=== PATIENT | female | born 1970 | race Caucasian/White ===

== ENCOUNTER → 2016-11-24 | Outpatient (CLI) | payer MEDICARE ==
--- NOTE | 2016-11-24 10:10 | MM ---
Reason for exam: additional evaluation requested from prior study. Last mammogram was performed 1 year ago. History: Patient is postmenopausal and had first child at age 29. Family history of breast cancer in maternal aunt and breast cancer in paternal aunt. Physical Findings: Nurse did not find any significant physical abnormalities on exam. MG 3D Diag Mammo W/Cad KATARZYNA Bilateral CC and MLO view(s) were taken. Prior study comparison: November 17, 2015, bilateral MG screening mammo w CAD. September 09, 2014, right breast MG work up mamm w CAD RT. The breast tissue is heterogeneously dense. This may lower the sensitivity of mammography. Finding: There are typically benign round calcifications in both breasts. There is a chronic nodularity in the right breast. These results were verbally communicated with the patient and result sheet given to the patient on 11/24/16. ASSESSMENT: Benign, BI-RAD 2 RECOMMENDATION: Routine screening mammogram of both breasts in 1 year. Manage on a clinical basis with regard to pain.
== END | disposition home or self-care (01) ==
LOC: RADMAMWWP 09:26
PROVIDERS: ATTEND Family Medicine
DX: N64.4 Mastodynia (principal)
CPT/HCPCS: G0204; G0279

== ENCOUNTER 2017-04-13 16:15 | Emergency (ER) | payer MEDICARE ==
[2017-04-13 16:31] VITALS: TEMP 98.1
[2017-04-13] MEDS ORDERED: SODIUM CHLORIDE 0.9% 1,000 ML IV STA (17:16)
[2017-04-13] MEDS ORDERED: diphenhydrAMINE 50 MG/ML 1 ML VIAL IVP STA (17:16)
[2017-04-13] MEDS ORDERED: METOCLOPRAMIDE 5 MG/ML 2 ML VIAL IVP STA (17:16)
[2017-04-13] MEDS ORDERED: KETOROLAC 30 MG/ML 1 ML VIAL IVP STA (17:16)
[2017-04-13 17:46] LABS: Appearance,Urine Cloudy (Clear); Bacteria,Urine Rare /hpf; Bilirubin,Urine Negative (Negative); Glucose,Urine (UA) Negative (Negative); Ketones,Urine Negative (Negative); Leukocyte Esterase,Urine Moderate (Negative); Mucus,Urine Few /hpf; Nitrite,Urine Negative (Negative); PH, Urine 5.5 (5.0-8.0); Particle Count 6456; Protein,Urine Trace (Negative); RBC,Urine 2 /hpf (0-5); Specific Gravity,Urine 1.017 (1.001-1.035); Squamous Epithelial Cell,Urine 4 /hpf (0-4); UA Billing (MACRO vs. MICRO) MICRO; Urobilinogen,Urine <2.0 mg/dL (<2.0); WBC,Urine 3 /hpf (0-5)
--- NOTE | 2017-04-13 18:04 | ED ---
General Adult HPI - General Chief complaint: Headache Stated complaint: migraine & poss kidney stones Time Seen by Provider: 04/13/17 17:02 Source: patient, RN notes reviewed Mode of arrival: ambulatory Limitations: no limitations - History of Present Illness Initial comments: Patient 46-year-old female significant past medical history for migraines and kidney stones, who presents emergency room today with a chief complaint of migraine headache that started this morning. She states is located to upper head. She states consistent with migraine headaches. Patient does admit to photophobia. Patient does admit to kidney stones. She states she began feeling some symptoms last night. Does admit to pain locally to the left flank area. She does admit that he has been dark in color. She denies any other complaints or associated symptoms at this time. Patient denies any recent fever , chills, shortness of breath, chest pain, vomiting, numbness or tingling, dysuria or hematuria, constipation or diarrhea, or any other complaints. - Related Data Home Medications Medication Instructions Recorded Confirmed Eletriptan [Relpax] 40 mg PO DAILY PRN 03/24/15 04/13/17 Lisinopril [Lisinopril] 20 mg PO DAILY 03/24/15 04/13/17 Meclizine [Antivert] 25 mg PO TID PRN 03/24/15 04/13/17 Omeprazole 40 mg PO AC-BRKFST 03/24/15 04/13/17 oxyCODONE HCL/ACETAMINOPHEN 1 tab PO Q6HR PRN 03/24/15 04/13/17 [Oxycodon-Acetaminophen 7.5-325] Ibuprofen [Motrin] 800 mg PO TID 10/05/15 04/13/17 Butalb/Asprin/Caff 50-325-40Mg 1 - 2 cap PO Q4HR PRN 04/13/17 04/13/17 [Fiorinal 50-325-40 MG] SUMAtriptan SUCCINATE [Imitrex] 50 mg PO DAILY PRN 04/13/17 04/13/17 amLODIPine [Norvasc] 10 mg PO DAILY 04/13/17 04/13/17 Previous Rx's Medication Instructions Recorded Hydrocodone/Acetaminophen [[place] 1 each PO Q6HR PRN #20 tab 04/13/17 5-325] Ibuprofen [Motrin] 600 mg PO Q6HR PRN #40 day 04/13/17 Ondansetron Odt [Zofran ODT] 4 mg PO Q8HR PRN #20 tab 04/13/17 Tamsulosin [Flomax] 0.4 mg PO DAILY #10 cap 04/13/17 Allergies Allergy/AdvReac Type Severity Reaction Status Date / Time No Known Allergies Allergy Verified 04/13/17 16:42 Review of Systems ROS Statement: Those systems with pertinent positive or pertinent negative responses have been documented in the HPI. ROS Other: All systems not noted in ROS Statement are negative. Past Medical History Past Medical History: Hypertension Additional Past Medical History / Comment(s): migranes, kidney stones History of Any Multi-Drug Resistant Organisms: None Reported Past Surgical History: Hysterectomy, Orthopedic Surgery Additional Past Surgical History / Comment(s): meningeal brain tumor crainiotomy 2007 right groin hernia, right shoulder spur x 2 Past Psychological History: No Psychological Hx Reported Smoking Status: Current some day smoker Past Alcohol Use History: Rare Past Drug Use History: None Reported General Exam - General Exam Comments Initial Comments: General: The patient is awake and alert, in no distress, and does not appear acutely ill. Eye: Pupils are equal, round and reactive to light, extra-ocular movements are intact. No nystagmus. There is normal conjunctiva bilaterally. No signs of icterus. Ears, nose, mouth and throat: There are moist mucous membranes and no oral lesions. Neck: The neck is supple, there is no tenderness or JVD. Cardiovascular: There is a regular rate and rhythm. No murmur, rub or gallop is appreciated. Respiratory: Lungs are clear to auscultation, respirations are non-labored, breath sounds are equal. No wheezes, stridor, rales, or rhonchi. Gastrointestinal: Soft, non-distended, non-tender abdomen without masses or organomegaly noted. There is no rebound or guarding present. No CVA tenderness. Bowel sounds are unremarkable. Musculoskeletal: Normal ROM, no tenderness. Strength 5/5. Sensation intact. Pulses equal bilaterally 2+. Neurological: A&O x 3. CN II-XII intact, There are no obvious motor or sensory deficits. Coordination appears grossly intact. Speech is normal. Skin: Skin is warm and dry and no rashes or lesions are noted. Psychiatric: Cooperative, appropriate mood & affect, normal judgment. Limitations: no limitations Course Vital Signs 04/13/17 04/13/17 16:28 19:01 Temperature 98.1 F Pulse Rate 73 67 Respiratory 20 17 Rate Blood Pressure 149/77 137/67 O2 Sat by Pulse 100 97 Oximetry Medical Decision Making - Medical Decision Making Patient reexamined at this time shows no signs of distress. Patient's labs been reviewed. Patient does admit to symptoms are consistent with kidney stones that she's had in the past. She does admit that her headache is improved. Patient will be discharged home given a prescription for pain medication, nausea, and Flomax for kidney stone advised follow-up the urologist. - Lab Data Result diagrams: 04/13/17 18:20 04/13/17 18:20 Lab Results 04/13/17 04/13/17 04/13/17 Range/Units 17:28 17:28 18:20 WBC 6.2 (3.8-10.6) k/uL RBC 5.06 (3.80-5.40) m/uL Hgb 15.2 (11.4-16.0) gm/dL Hct 42.9 (34.0-46.0) % MCV 84.9 (80.0-100.0) fL MCH 30.1 (25.0-35.0) pg MCHC 35.5 (31.0-37.0) g/dL RDW 13.7 (11.5-15.5) % Plt Count 209 (150-450) k/uL Neutrophils % 53 % Lymphocytes % 37 % Monocytes % 4 % Eosinophils % 3 % Basophils % 0 % Neutrophils # 3.3 (1.3-7.7) k/uL Lymphocytes # 2.3 (1.0-4.8) k/uL Monocytes # 0.3 (0-1.0) k/uL Eosinophils # 0.2 (0-0.7) k/uL Basophils # 0.0 (0-0.2) k/uL Sodium (137-145) mmol/L Potassium (3.5-5.1) mmol/L Chloride (98-107) mmol/L Carbon Dioxide (22-30) mmol/L Anion Gap mmol/L BUN (7-17) mg/dL Creatinine (0.52-1.04) mg/dL Est GFR (MDRD) Af Amer (>60 ml/min/1.73 sqM) Est GFR (MDRD) Non-Af (>60 ml/min/1.73 sqM) Glucose (74-99) mg/dL Calcium (8.4-10.2) mg/dL Total Bilirubin (0.2-1.3) mg/dL AST (14-36) U/L ALT (9-52) U/L Alkaline Phosphatase (38-126) U/L Total Protein (6.3-8.2) g/dL Albumin (3.5-5.0) g/dL Lipase (23-300) U/L Urine Color Yellow Urine Appearance Cloudy H (Clear) Urine pH 5.5 (5.0-8.0) Ur Specific Moore 1.017 (1.001-1.035) Urine Protein Trace H (Negative) Urine Glucose (UA) Negative (Negative) Urine Ketones Negative (Negative) Urine Blood Negative (Negative) Urine Nitrite Negative (Negative) Urine Bilirubin Negative (Negative) Urine Urobilinogen <2.0 (<2.0) mg/dL Ur Leukocyte Esterase Moderate H (Negative) Urine RBC 2 (0-5) /hpf Urine WBC 3 (0-5) /hpf Ur Squamous Epith Cells 4 (0-4) /hpf Urine Bacteria Rare H (None) /hpf Urine Mucus Few H (None) /hpf Urine HCG, Qual Not Detected (Not Detectd) 04/13/17 Range/Units 18:20 WBC (3.8-10.6) k/uL RBC (3.80-5.40) m/uL Hgb (11.4-16.0) gm/dL Hct (34.0-46.0) % MCV (80.0-100.0) fL MCH (25.0-35.0) pg MCHC (31.0-37.0) g/dL RDW (11.5-15.5) % Plt Count (150-450) k/uL Neutrophils % % Lymphocytes % % Monocytes % % Eosinophils % % Basophils % % Neutrophils # (1.3-7.7) k/uL Lymphocytes # (1.0-4.8) k/uL Monocytes # (0-1.0) k/uL Eosinophils # (0-0.7) k/uL Basophils # (0-0.2) k/uL Sodium 142 (137-145) mmol/L Potassium 4.3 (3.5-5.1) mmol/L Chloride 107 (98-107) mmol/L Carbon Dioxide 21 L (22-30) mmol/L Anion Gap 14 mmol/L BUN 11 (7-17) mg/dL Creatinine 0.77 (0.52-1.04) mg/dL Est GFR (MDRD) Af Amer >60 (>60 ml/min/1.73 sqM) Est GFR (MDRD) Non-Af >60 (>60 ml/min/1.73 sqM) Glucose 77 (74-99) mg/dL Calcium 9.6 (8.4-10.2) mg/dL Total Bilirubin 0.7 (0.2-1.3) mg/dL AST 42 H (14-36) U/L ALT 51 (9-52) U/L Alkaline Phosphatase 96 (38-126) U/L Total Protein 7.3 (6.3-8.2) g/dL Albumin 4.6 (3.5-5.0) g/dL Lipase 110 (23-300) U/L Urine Color Urine Appearance (Clear) Urine pH (5.0-8.0) Ur Specific Moore (1.001-1.035) Urine Protein (Negative) Urine Glucose (UA) (Negative) Urine Ketones (Negative) Urine Blood (Negative) Urine Nitrite (Negative) Urine Bilirubin (Negative) Urine Urobilinogen (<2.0) mg/dL Ur Leukocyte Esterase (Negative) Urine RBC (0-5) /hpf Urine WBC (0-5) /hpf Ur Squamous Epith Cells (0-4) /hpf Urine Bacteria (None) /hpf Urine Mucus (None) /hpf Urine HCG, Qual (Not Detectd) Disposition Clinical Impression: Migraine, Kidney stone Disposition: HOME SELF-CARE Condition: Good Instructions: Kidney Stones (ED) Additional Instructions: Please use medication as discussed. Please follow-up with urologist/family doctor in the next 2 days of symptoms have not improved. Please return to emergency room if the symptoms increase or worsen or for any other concerns. Prescriptions: Hydrocodone/Acetaminophen [Donovan 5-325] 1 each PO Q6HR PRN #20 tab PRN Reason: Pain Ibuprofen [Motrin] 600 mg PO Q6HR PRN #40 day PRN Reason: Pain Ondansetron Odt [Zofran ODT] 4 mg PO Q8HR PRN #20 tab PRN Reason: Nausea Tamsulosin [Flomax] 0.4 mg PO DAILY #10 cap Referrals: Allan Vasquez MD [Primary Care Provider] - 1-2 days Lauri Murrieta MD [STAFF PHYSICIAN] - 1-2 days Time of Disposition: 19:10
[2017-04-13 18:33] LABS: Basophils % (A) 0 %; CH 29.7; CHCM 35.1; Eosinophils # (A) 0.2 k/uL (0-0.7); Eosinophils % (A) 3 %; HCT 42.9 % (34.0-46.0); HGB 15.2 gm/dL (11.4-16.0); Luc # (Auto) 0.16; Luc % (Auto) 3; Lymphocytes # (A) 2.3 k/uL (1.0-4.8); Lymphocytes % (A) 37 %; MCH 30.1 pg (25.0-35.0); MCHC 35.5 g/dL (31.0-37.0); MCV 84.9 fL (80.0-100.0); Mean Platelet Volume 9.4; Monocytes # (A) 0.3 k/uL (0-1.0); Monocytes % (A) 4 %; Neutrophils # (A) 3.3 k/uL (1.3-7.7); Neutrophils % (A) 53 %; RBC 5.06 m/uL (3.80-5.40); RDW 13.7 % (11.5-15.5); WBC 6.2 k/uL (3.8-10.6); WBC (Perox) 6.43
[2017-04-13 18:35] LABS: ALT 51 U/L (9-52); AST 42 U/L (14-36); Alkaline Phosphatase 96 U/L (38-126); Anion Gap 14 mmol/L; Blood Urea Nitrogen 11 mg/dL (7-17); Calcium 9.6 mg/dL (8.4-10.2); Carbon Dioxide 21 mmol/L (22-30); Chloride 107 mmol/L (98-107); Glucose 77 mg/dL (74-99); Non-African American GFR(MDRD) >60 (>60 ml/min/1.73 sqM); Potassium 4.3 mmol/L (3.5-5.1); Sodium 142 mmol/L (137-145); Total Bilirubin 0.7 mg/dL (0.2-1.3); Total Protein 7.3 g/dL (6.3-8.2)
[2017-04-13 19:53] VITALS: BP 149/73; PULSE 62; RESP 18
--- NOTE | 2017-04-13 22:00 | XR ---
EXAMINATION TYPE: XR KUB DATE OF EXAM: 04/13/2017 COMPARISON: 10/05/2015 HISTORY: Flank pain TECHNIQUE: 2 views FINDINGS: There is no sign of intestinal obstruction or pneumoperitoneum. Fecal pattern is normal. Th ere is no sign of a mass. There are no pathologic calcifications over the kidneys. IMPRESSION: Nonacute abdomen. No change.
== END 2017-04-13 19:20 | disposition home or self-care (01) ==
LOC: EC 16:15
DX: G43.909 Migraine, unspecified, not intractable, without status migrainosus (principal); N20.0 Calculus of kidney; I10 Essential (primary) hypertension; F17.200 Nicotine dependence, unspecified, uncomplicated; Z79.1 Long term (current) use of non-steroidal anti-inflammatories (NSAID); Z79.899 Other long term (current) drug therapy
CPT/HCPCS: 99284; 96374; 96375 ×2; 96361; 36415; 80053; 83690; 85025; 81001; 81025; 87086; 74000; J1200; J2765; J1885

== ENCOUNTER → 2018-03-06 | Outpatient (CLI) | payer MEDICARE ==
--- NOTE | 2018-03-07 14:13 | MM ---
Reason for exam: screening (asymptomatic). Last mammogram was performed 1 year and 3 months ago. History: Patient is postmenopausal and had first child at age 29. Family history of breast cancer in maternal aunt and breast cancer in paternal aunt. Physical Findings: A clinical breast exam by your physician is recommended on an annual basis and results should be correlated with mammographic findings. MG 3D Screening Mammo W/Cad Bilateral CC and MLO view(s) were taken. Prior study comparison: November 24, 2016, bilateral MG 3d diag mammo w/cad KATARZYNA. November 17, 2015, bilateral MG screening mammo w CAD. The breast tissue is heterogeneously dense. This may lower the sensitivity of mammography. There is no discrete abnormality. ASSESSMENT: Negative, BI-RAD 1 RECOMMENDATION: Routine screening mammogram of both breasts in 1 year.
== END | disposition home or self-care (01) ==
LOC: RADMAMWWP 10:49
PROVIDERS: ATTEND Family Medicine
DX: Z12.31 Encounter for screening mammogram for malignant neoplasm of breast (principal)
CPT/HCPCS: 77063; 77067

== ENCOUNTER 2019-10-07 09:01 | Emergency (ER) | payer MEDICARE ==
[2019-10-07 09:21] VITALS: RESP 20; TEMP 98.7
[2019-10-07] MEDS ORDERED: IPRATROPIUM-ALBUTEROL 3 ML NEB INHALATION STA (09:43)
[2019-10-07] MEDS ORDERED: methylPREDNISolone SOD SUCCI 125 MG/2 ML VIAL IM ONE (09:43)
--- NOTE | 2019-10-07 09:54 | ED ---
URI HPI - General Chief Complaint: Upper Respiratory Infection Stated Complaint: cough/congestion Time Seen by Provider: 10/07/19 09:28 Source: patient, RN notes reviewed, old records reviewed Mode of arrival: ambulatory Limitations: no limitations - History of Present Illness Initial Comments: This is a 49-year-old female presents with 3 weeks of cough congestion. Has been exposed to her son who was diagnosed with sinusitis and bronchitis. Patient has had a productive cough. She denies any bloody sputum. He reports that she quit smoking when the symptoms started approximately 3 weeks ago. - Related Data Home Medications Medication Instructions Recorded Confirmed Eletriptan [Relpax] 40 mg PO DAILY PRN 03/24/15 04/13/17 Lisinopril 20 mg PO DAILY 03/24/15 04/13/17 Meclizine [Antivert] 25 mg PO TID PRN 03/24/15 04/13/17 Omeprazole 40 mg PO AC-BRKFST 03/24/15 04/13/17 oxyCODONE HCL/ACETAMINOPHEN 1 tab PO Q6HR PRN 03/24/15 04/13/17 [Oxycodon-Acetaminophen 7.5-325] Ibuprofen [Motrin] 800 mg PO TID 10/05/15 04/13/17 Butalb/Asprin/Caff 50-325-40Mg 1 - 2 cap PO Q4HR PRN 04/13/17 04/13/17 [Fiorinal 50-325-40 MG] SUMAtriptan SUCCINATE [Imitrex] 50 mg PO DAILY PRN 04/13/17 04/13/17 amLODIPine [Norvasc] 10 mg PO DAILY 04/13/17 04/13/17 Previous Rx's Medication Instructions Recorded Hydrocodone/Acetaminophen [[place] 1 each PO Q6HR PRN #20 tab 04/13/17 5-325] Ibuprofen [Motrin] 600 mg PO Q6HR PRN #40 day 04/13/17 Ondansetron Odt [Zofran ODT] 4 mg PO Q8HR PRN #20 tab 04/13/17 Tamsulosin [Flomax] 0.4 mg PO DAILY #10 cap 04/13/17 Azithromycin 250 mg PO DAILY #6 tablet 10/07/19 Ipratropium-Albuterol Nebulize 3 ml INHALATION QID #30 neb 10/07/19 [Duoneb 0.5 mg-3 mg/3 ml Soln] predniSONE [Deltasone] 20 mg PO DIRECTED #12 tab 10/07/19 Allergies Allergy/AdvReac Type Severity Reaction Status Date / Time No Known Allergies Allergy Verified 04/13/17 16:42 Review of Systems ROS Statement: Those systems with pertinent positive or pertinent negative responses have been documented in the HPI. ROS Other: All systems not noted in ROS Statement are negative. Past Medical History Past Medical History: Hypertension Additional Past Medical History / Comment(s): migranes, kidney stones, brain tumor History of Any Multi-Drug Resistant Organisms: None Reported Past Surgical History: Hysterectomy, Orthopedic Surgery Additional Past Surgical History / Comment(s): meningeal brain tumor crainiotomy 2007 right groin hernia, right shoulder spur x 2 Past Psychological History: Anxiety Smoking Status: Current some day smoker Past Alcohol Use History: None Reported Past Drug Use History: None Reported General Exam - General Exam Comments Initial Comments: 49 yo female. Alert and oriented 3. Limitations: no limitations Head exam: Present: atraumatic, normocephalic, normal inspection Eye exam: Present: normal appearance, PERRL, EOMI. Absent: scleral icterus, conjunctival injection, periorbital swelling ENT exam: Present: normal exam, mucous membranes moist Neck exam: Present: normal inspection. Absent: tenderness, meningismus, lymphadenopathy Respiratory exam: Present: other (cough, minimal wheezing). Absent: normal lung sounds bilaterally, respiratory distress, wheezes, rales, rhonchi, stridor Cardiovascular Exam: Present: regular rate, normal rhythm, normal heart sounds. Absent: systolic murmur, diastolic murmur, rubs, gallop, clicks GI/Abdominal exam: Present: soft, normal bowel sounds. Absent: distended, tenderness, guarding, rebound, rigid Extremities exam: Present: normal inspection, full ROM, normal capillary refill. Absent: tenderness, pedal edema, joint swelling, calf tenderness Back exam: Present: normal inspection Neurological exam: Present: alert, oriented X3, CN II-XII intact Psychiatric exam: Present: normal affect, normal mood Skin exam: Present: warm, dry, intact, normal color. Absent: rash Course Vital Signs 10/07/19 09:17 Temperature 98.7 F Pulse Rate 65 Respiratory 20 Rate Blood Pressure 122/82 O2 Sat by Pulse 96 Oximetry Medical Decision Making - Medical Decision Making 49-year-old female presented today for eval for concern for cough congestion for 3 weeks. She reports that she is a former smoker. She does have some wheezing. Using albuterol treatments. Patient had no specific fevers or chills. At this time patient's chest x-ray is unremarkable. She was given IM Solu-Medrol and DuoNeb. I discussed treatment at this time for bronchitis, with steroids will put the Patient on azithromycin she's had symptoms for 3 weeks. I discussed return parameters and close PCP follow-up. Disposition Clinical Impression: Bronchitis Disposition: HOME SELF-CARE Condition: Good Instructions (If sedation given, give patient instructions): Acute Bronchitis (ED) Additional Instructions: Please use medication as discussed. Please follow up with family doctor if symptoms have not improved over the next two days. Please return to the emergency room if your symptoms increase or worsen or for any other concerns. Prescriptions: Azithromycin 250 mg PO DAILY #6 tablet predniSONE [Deltasone] 20 mg PO DIRECTED #12 tab Ipratropium-Albuterol Nebulize [Duoneb 0.5 mg-3 mg/3 ml Soln] 3 ml INHALATION QID #30 neb Is patient prescribed a controlled substance at d/c from ED?: No Referrals: Allan Vasquez MD [Primary Care Provider] - 1-2 days Time of Disposition: 10:15
--- NOTE | 2019-10-07 10:10 | XR ---
EXAMINATION TYPE: XR chest 2V DATE OF EXAM: 10/07/2019 COMPARISON: 09/22/2011 HISTORY: Cough and congestion for 3 weeks TECHNIQUE: Frontal and lateral views of the chest are obtained. FINDINGS: There is no focal air space opacity, pleural effusion, or pneumothorax seen. Stable right- sided pleural thickening dating back to 2011. The cardiac silhouette size is within normal limits. The osseous structures are intact. Very minimal degenerative change of the spine. IMPRESSION: No acute cardiopulmonary process.
[2019-10-07 10:25] VITALS: BP 144/86; PULSE 64
== END 2019-10-07 10:26 | disposition home or self-care (01) ==
LOC: EC 09:01
DX: J40 Bronchitis, not specified as acute or chronic (principal); I10 Essential (primary) hypertension; Z87.891 Personal history of nicotine dependence; Z79.1 Long term (current) use of non-steroidal anti-inflammatories (NSAID); Z79.899 Other long term (current) drug therapy; Z85.841 Personal history of malignant neoplasm of brain; Z86.69 Personal history of other diseases of the nervous system and sense organs; Z98.890 Other specified postprocedural states; Z20.89 Contact with and (suspected) exposure to other communicable diseases
CPT/HCPCS: 99284; 96372; 94640; 71046; J2930

== ENCOUNTER 2020-01-13 09:59 | Emergency (ER) | payer MEDICARE ==
[2020-01-13 10:17] VITALS: TEMP 98.4
--- NOTE | 2020-01-13 10:28 | ED ---
Neuro HPI - General Chief Complaint: Neuro Symptoms/Deficit Stated Complaint: neuro symptoms Time Seen by Provider: 01/13/20 10:00 Source: patient, EMS, RN notes reviewed Mode of arrival: EMS Limitations: no limitations - History of Present Illness Is the patient presenting with stroke symptoms?: No Initial Comments: This is a 49-year-old female with a history of a partially resected meningioma several years ago who states she's had cold-like symptoms with some left ear pressure over last several days ear pressure is been on-and-off. She denies any overt fevers chills nausea vomiting sweats cough phlegm production rhinorrhea. She states about one hour ago prior to arrival she was at work and started developing some trouble with speech and some trouble moving her left eyelid and felt like her left facial area was responding normally. No weakness or arms or legs no trauma no headache no other symptoms reported at this time. Per paramedics she possibly had some conjunctivitis type changes old she does admit she just put her contact lenses in earlier today. - Related Data Home Medications: Home Medications Medication Instructions Recorded Confirmed Lisinopril 20 mg PO DAILY 03/24/15 01/13/20 Omeprazole 40 mg PO AC-BRKFST 03/24/15 01/13/20 Butalb/Asprin/Caff 50-325-40Mg 1 - 2 cap PO Q4HR PRN 04/13/17 01/13/20 [Fiorinal 50-325-40 MG] ALPRAZolam [Xanax] 0.5 mg PO TID 01/13/20 01/13/20 Albuterol Inhaler [Ventolin Hfa 2 puff INHALATION RT-Q6H PRN 01/13/20 01/13/20 Inhaler] Cetirizine HCl [Zyrtec] 10 mg PO DAILY PRN 01/13/20 01/13/20 Naproxen Sodium 550 mg PO BID 01/13/20 01/13/20 Previous Rx's Medication Instructions Recorded predniSONE [Deltasone] 40 mg PO BID #14 tab 01/13/20 valACYclovir HCL [Valacyclovir] 1,000 mg PO TID #21 tab 01/13/20 Allergies/Adverse Reactions: Allergies Allergy/AdvReac Type Severity Reaction Status Date / Time No Known Allergies Allergy Verified 01/13/20 11:17 Review of Systems ROS Statement: Those systems with pertinent positive or pertinent negative responses have been documented in the HPI. ROS Other: All systems not noted in ROS Statement are negative. General Exam - General Exam Comments Initial Comments: This is a well-developed well-nourished awake alert oriented 1 female patient does have evidence of left facial asymmetry with forehead involvement. Limitations: no limitations General appearance: alert, anxious Head exam: Present: atraumatic, normocephalic, normal inspection Eye exam: Present: normal appearance, PERRL, EOMI. Absent: scleral icterus, conjunctival injection, periorbital swelling ENT exam: Present: mucous membranes moist, other (Patient's has some fluid behind left tympanic membrane no posterior pharyngeal erythema.) Neck exam: Present: normal inspection, full ROM, other (No stridor JVD or bruits). Absent: tenderness, meningismus, lymphadenopathy Respiratory exam: Present: normal lung sounds bilaterally. Absent: respiratory distress, wheezes, rales, rhonchi, stridor Cardiovascular Exam: Present: regular rate, normal rhythm, normal heart sounds. Absent: systolic murmur, diastolic murmur, rubs, gallop, clicks GI/Abdominal exam: Present: soft, normal bowel sounds. Absent: distended, tenderness, guarding, rebound, rigid Extremities exam: Present: normal inspection, full ROM, normal capillary refill. Absent: tenderness, pedal edema, joint swelling, calf tenderness Back exam: Present: normal inspection Neurological exam: Present: alert, oriented X3, other ((Patient asymmetry with for his sparing more consistent with Zepeda's palsy). Absent: CN II-XII intact Psychiatric exam: Present: normal affect, normal mood Skin exam: Present: warm, dry, intact, normal color. Absent: rash Stroke MDM - Lab Data Result diagrams: 01/13/20 10:35 01/13/20 10:35 Lab Results 01/13/20 01/13/20 01/13/20 Range/Units 10:35 10:35 10:35 WBC 6.7 (3.8-10.6) k/uL RBC 4.91 (3.80-5.40) m/uL Hgb 15.1 (11.4-16.0) gm/dL Hct 43.9 (34.0-46.0) % MCV 89.4 (80.0-100.0) fL MCH 30.8 (25.0-35.0) pg MCHC 34.4 (31.0-37.0) g/dL RDW 13.6 (11.5-15.5) % Plt Count 220 (150-450) k/uL Neutrophils % 60 % Lymphocytes % 29 % Monocytes % 5 % Eosinophils % 3 % Basophils % 0 % Neutrophils # 4.0 (1.3-7.7) k/uL Lymphocytes # 2.0 (1.0-4.8) k/uL Monocytes # 0.3 (0-1.0) k/uL Eosinophils # 0.2 (0-0.7) k/uL Basophils # 0.0 (0-0.2) k/uL PT 9.4 (9.0-12.0) sec INR 0.9 (<1.2) APTT 23.7 (22.0-30.0) sec Sodium 139 (137-145) mmol/L Potassium 4.1 (3.5-5.1) mmol/L Chloride 106 (98-107) mmol/L Carbon Dioxide 24 (22-30) mmol/L Anion Gap 9 mmol/L BUN 12 (7-17) mg/dL Creatinine 0.62 (0.52-1.04) mg/dL Est GFR (CKD-EPI)AfAm >90 (>60 ml/min/1.73 sqM) Est GFR (CKD-EPI)NonAf >90 (>60 ml/min/1.73 sqM) Glucose 146 H (74-99) mg/dL Calcium 9.4 (8.4-10.2) mg/dL Total Bilirubin 0.4 (0.2-1.3) mg/dL AST 26 (14-36) U/L ALT 28 (4-34) U/L Alkaline Phosphatase 87 (38-126) U/L Creatine Kinase 47 (30-135) U/L Troponin I (0.000-0.034) ng/mL Total Protein 7.2 (6.3-8.2) g/dL Albumin 4.4 (3.5-5.0) g/dL 01/13/20 Range/Units 10:35 WBC (3.8-10.6) k/uL RBC (3.80-5.40) m/uL Hgb (11.4-16.0) gm/dL Hct (34.0-46.0) % MCV (80.0-100.0) fL MCH (25.0-35.0) pg MCHC (31.0-37.0) g/dL RDW (11.5-15.5) % Plt Count (150-450) k/uL Neutrophils % % Lymphocytes % % Monocytes % % Eosinophils % % Basophils % % Neutrophils # (1.3-7.7) k/uL Lymphocytes # (1.0-4.8) k/uL Monocytes # (0-1.0) k/uL Eosinophils # (0-0.7) k/uL Basophils # (0-0.2) k/uL PT (9.0-12.0) sec INR (<1.2) APTT (22.0-30.0) sec Sodium (137-145) mmol/L Potassium (3.5-5.1) mmol/L Chloride (98-107) mmol/L Carbon Dioxide (22-30) mmol/L Anion Gap mmol/L BUN (7-17) mg/dL Creatinine (0.52-1.04) mg/dL Est GFR (CKD-EPI)AfAm (>60 ml/min/1.73 sqM) Est GFR (CKD-EPI)NonAf (>60 ml/min/1.73 sqM) Glucose (74-99) mg/dL Calcium (8.4-10.2) mg/dL Total Bilirubin (0.2-1.3) mg/dL AST (14-36) U/L ALT (4-34) U/L Alkaline Phosphatase (38-126) U/L Creatine Kinase (30-135) U/L Troponin I <0.012 (0.000-0.034) ng/mL Total Protein (6.3-8.2) g/dL Albumin (3.5-5.0) g/dL - NIH Stroke Scale 1a. Level of Consciousness: (0) alert 1b. LOC Questions: (0) answers correctly 1c. LOC Commands: (0) performs tasks correctly 2. Best Gaze: (0) normal 3. Visual: (0) no visual loss 4. Facial Palsy: (1) minor paralysis 5a. Motor Arm Left: (0) no drift 5b. Motor Arm Right: (0) no drift 6a. Motor Leg Left: (0) no drift 6b. Motor Leg Right: (0) no drift 7. Limb Ataxia: (0) absent 8. Sensory: (0) normal 9. Best Language: (0) no aphasia 10. Dysarthria: (0) normal 11. 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 He diagnosis is Zepeda's palsy she will be discharged on appropriate medication she is very familiar with this as her had the past. She will follow-up with Dr. Vasquez tomorrow. When necessary - EKG Data -: EKG Interpreted by Me EKG shows normal: sinus rhythm (Sinus rhythm rate 84. Interval 92 QRS duration 94 QT since QTC 370/437 that anterior fascicular block [place] inferior configuration nonspecific anterolateral configuration) Past Medical History Past Medical History: Hypertension Additional Past Medical History / Comment(s): migranes, kidney stones, brain tumor History of Any Multi-Drug Resistant Organisms: None Reported Past Surgical History: Hysterectomy, Orthopedic Surgery Additional Past Surgical History / Comment(s): meningeal brain tumor crainiotomy 2007 right groin hernia, right shoulder spur x 2 Past Psychological History: Anxiety Smoking Status: Current some day smoker Past Alcohol Use History: None Reported Past Drug Use History: None Reported Course Vital Signs 01/13/20 01/13/20 01/13/20 10:02 10:30 11:00 Temperature 98.4 F Pulse Rate 79 Respiratory 18 Rate Blood Pressure 150/85 150/85 153/82 O2 Sat by Pulse 94 L 95 Oximetry 01/13/20 01/13/20 11:30 12:54 Temperature Pulse Rate 71 66 Respiratory 22 18 Rate Blood Pressure 135/78 142/71 O2 Sat by Pulse 96 142 H Oximetry - Reevaluation(s) Reevaluation #1: 01/13/20 15:23 Patient did have a plain brain CT which showed the evidence of a meningioma perhaps increased in size the patient and her are aware this. Due to the presentation and prior history CT angios was ordered initial visual field due to extravasation of contrast in the left forearm. Repeat was done. CT shows no evidence of any obstruction of the arterial system. Disposition Clinical Impression: Zepeda's palsy Disposition: HOME SELF-CARE Condition: Good Instructions (If sedation given, give patient instructions): Zepeda Palsy (ED) Additional Instructions: Lacri-Lube at bedtime when necessary Prescriptions: predniSONE [Deltasone] 40 mg PO BID #14 tab valACYclovir HCL [Valacyclovir] 1,000 mg PO TID #21 tab Is patient prescribed a controlled substance at d/c from ED?: No Referrals: Allan Vasquez MD [Primary Care Provider] - 1-2 days
[2020-01-13 11:05] LABS: Basophils % (A) 0 %; Eosinophils # (A) 0.2 k/uL (0-0.7); Eosinophils % (A) 3 %; HCT 43.9 % (34.0-46.0); HGB 15.1 gm/dL (11.4-16.0); Lymphocytes % (A) 29 %; MCH 30.8 pg (25.0-35.0); MCHC 34.4 g/dL (31.0-37.0); MCV 89.4 fL (80.0-100.0); Mean Platelet Volume 10.3; Monocytes # (A) 0.3 k/uL (0-1.0); Monocytes % (A) 5 %; Neutrophils % (A) 60 %; Platelet Count 220 k/uL (150-450); RBC 4.91 m/uL (3.80-5.40); RDW 13.6 % (11.5-15.5); WBC 6.7 k/uL (3.8-10.6)
[2020-01-13 11:18] LABS: ALT 28 U/L (4-34); AST 26 U/L (14-36); African American GFR (CKD) >90 (>60 ml/min/1.73 sqM); Albumin 4.4 g/dL (3.5-5.0); Alkaline Phosphatase 87 U/L (38-126); Anion Gap 9 mmol/L; Blood Urea Nitrogen 12 mg/dL (7-17); Calcium 9.4 mg/dL (8.4-10.2); Carbon Dioxide 24 mmol/L (22-30); Chloride 106 mmol/L (98-107); Creatine Kinase 47 U/L (30-135); Glucose 146 mg/dL (74-99); Non-African American GFR(CKD) >90 (>60 ml/min/1.73 sqM); Potassium 4.1 mmol/L (3.5-5.1); Sodium 139 mmol/L (137-145); Total Bilirubin 0.4 mg/dL (0.2-1.3); Total Protein 7.2 g/dL (6.3-8.2)
--- NOTE | 2020-01-13 11:20 | CT ---
EXAMINATION TYPE: CT brain wo con DATE OF EXAM: 01/13/2020 COMPARISON: MRI dated 01/13/2011 HISTORY: slurred speech CT DLP: 995.8 mGycm. Automated Exposure Control for Dose Reduction was Utilized. TECHNIQUE: CT scan of the head is performed without contrast. FINDINGS: On the prior MRI of 01/13/2011 a parasagittal enhancing extra-axial mass and sequela of prior right craniotomy were seen. This measured 1.3 x 1.5 x 2.8 cm in 2011. The focal area of encephalomal acia of the right frontal lobe high along the vertex is unchanged from 2011. There is slight bowing o f the falx cerebri with craniotomy changes of the right frontal bone. The extra-axial partially calci fied mass measures approximately 1.4 x 1.6 x 3.3 cm on today's examination. No acute intracranial hemorrhage is seen. No suspicious extra-axial fluid collection. The ventricles and sulci are within normal limits in size. The globes are intact and the visualized sinuses are theresa ar. IMPRESSION: No acute intracranial hemorrhage or suspicious extra-axial fluid collection. Slight inte rval growth of the previously described extra-axial mass in comparison to the prior of 2010, likely m eningioma with stable postsurgical change of the right frontal lobe and right frontal encephalomalaci a.
[2020-01-13 11:23] LABS: INR 0.9 (<1.2); Partial Thromboplastin Time 23.7 sec (22.0-30.0); Prothrombin Time 9.4 sec (9.0-12.0)
--- NOTE | 2020-01-13 11:26 | XR ---
EXAMINATION TYPE: XR chest 2V DATE OF EXAM: 01/13/2020 COMPARISON: 10/07/2019 HISTORY: Altered mental status TECHNIQUE: Frontal and lateral views of the chest are obtained. FINDINGS: There is no focal air space opacity, pleural effusion, or pneumothorax seen. The cardiac silhouette size is upper limits of normal. Mild degenerative change of the spine with diffuse osseous demineralization. IMPRESSION: No acute cardiopulmonary process.
[2020-01-13 12:57] VITALS: RESP 18
--- NOTE | 2020-01-13 15:06 | CT ---
EXAMINATION TYPE: CT angio head neck DATE OF EXAM: 01/13/2020 COMPARISON: None HISTORY: slurred speech CT DLP: 1323.2 mGycm CONTRAST: Performed with IV Contrast, patient injected with 65 mL of Isovue 370. Combination Contrast CTA cervical carotids and [place] CTA cervical carotids with 3-D recons truction Contrast CTA of the cervical carotids was performed 3-D reconstruction imaging obtained at a separate workstation. Right carotid system: Mild plaque is seen of the right common carotid artery. There is mild plaque a lso noted at the carotid bulb and proximal ICA. No significant diameter reduction. ECA is patent. Right vertebral artery appears unremarkable. Left carotid system: Mild plaque is seen of the left common carotid artery. There is mild plaque als o noted at the carotid bulb and proximal ICA. No significant diameter reduction. ECA is patent. Lef t vertebral artery appears unremarkable. IMPRESSION: 1. No significant diameter reduction to account for the patient's symptoms. CTA [place] with 3-D reconstruction Contrast CTA of the [place] was performed 3-D reconstruction imaging obtained at a separate workstation. Vertebrobasilar system as well as intracranial portions of the internal carotid arteries and their ma aysha tributaries are patent. I do not see evidence for sizable aneurysm or vascular malformation. Pl ease note MRI provides greater sensitivity and specificity. Visualized brain appears grossly unremar kable. IMPRESSION: 1. No significant abnormality.
[2020-01-13] MEDS ORDERED: predniSONE 50 MG TAB PO STA (15:20)
[2020-01-13] MEDS ORDERED: valACYclovir HCL 1,000 MG TABLET PO STA (15:21)
[2020-01-13 15:50] VITALS: BP 136/82; PULSE 78
== END 2020-01-13 15:49 | disposition home or self-care (01) ==
LOC: EC 09:59
DX: G51.0 Bell's palsy (principal); I10 Essential (primary) hypertension; G43.909 Migraine, unspecified, not intractable, without status migrainosus; F41.9 Anxiety disorder, unspecified; F17.200 Nicotine dependence, unspecified, uncomplicated; Z86.011 Personal history of benign neoplasm of the brain; Z98.890 Other specified postprocedural states; Z79.1 Long term (current) use of non-steroidal anti-inflammatories (NSAID); Z79.899 Other long term (current) drug therapy
CPT/HCPCS: 99285; 36415; 93005; 80053; 82550; 84484; 85025; 85610; 85730; 71046; 70496; 70450; 70498; J7512; Q9967

== ENCOUNTER 2022-07-15 12:42 | Emergency (ER) | payer MEDICARE ==
[2022-07-15 13:19] VITALS: RESP 20; TEMP 97.9
[2022-07-15] MEDS ORDERED: MORPHINE SULFATE 4 MG/ML SYRINGE IV STA (15:25)
[2022-07-15] MEDS ORDERED: methylPREDNISolone SOD SUCCI 125 MG/2 ML VIAL IM STA (15:25)
--- NOTE | 2022-07-15 15:44 | ED ---
Back Pain HPI - General Chief Complaint: Back Pain/Injury Stated Complaint: Back Pain Time Seen by Provider: 07/15/22 15:17 Source: patient, RN notes reviewed Limitations: no limitations - History of Present Illness Initial Comments: Patient is a pleasant 51-year-old female presenting to the emergency room with 3 days of right-sided lower back pain with radiculopathy into her right leg. She reports that she has had back pain similar to this without any known aggravating factors. She denies any weakness, bowel or bladder incontinence, saddle paresthesia or other red flag symptoms of caudae equina. She is also complaining of a rash to the right chest wall unrelated to her back pain which has been ongoing for approximately 3 weeks and is itchy in nature. She is concerned regarding the rash as it continues to persist and she previously had shingles in the location though the rash does not feel or look like shingles infection. She denies any other complaints or concerns including any headache, dizziness, abdominal pain, nausea, vomiting, shortness of breath, chest pain, fevers or chills. 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 - Related Data Home Medications Medication Instructions Recorded Confirmed Omeprazole 40 mg PO AC-BRKFST 03/24/15 01/13/20 lisinopriL [Lisinopril] 20 mg PO DAILY 03/24/15 01/13/20 Butalb/Asprin/Caff 50-325-40Mg 1 - 2 cap PO Q4HR PRN 04/13/17 01/13/20 [Fiorinal 50-325-40 MG] ALPRAZolam [Xanax] 0.5 mg PO TID 01/13/20 01/13/20 Albuterol Inhaler [Ventolin Hfa 2 puff INHALATION RT-Q6H PRN 01/13/20 01/13/20 Inhaler] Cetirizine HCl [Zyrtec] 10 mg PO DAILY PRN 01/13/20 01/13/20 Naproxen Sodium 550 mg PO BID 01/13/20 01/13/20 Previous Rx's Medication Instructions Recorded predniSONE [Deltasone] 40 mg PO BID #14 tab 01/13/20 valACYclovir HCL [Valacyclovir] 1,000 mg PO TID #21 tab 01/13/20 Clotrimazole Cream [Lotrimin Cream] 1 applic TOPICAL BID #30 gm 07/15/22 Cyclobenzaprine HCl 10 mg PO TID PRN 7 Days #21 tab 07/15/22 Ibuprofen [Motrin] 800 mg PO Q8H PRN 7 Days #21 tab 07/15/22 Allergies Allergy/AdvReac Type Severity Reaction Status Date / Time No Known Allergies Allergy Verified 07/15/22 13:18 Review of Systems ROS Statement: Those systems with pertinent positive or pertinent negative responses have been documented in the HPI. ROS Other: All systems not noted in ROS Statement are negative. Past Medical History Past Medical History: Hypertension Additional Past Medical History / Comment(s): migranes, kidney stones, brain tumor History of Any Multi-Drug Resistant Organisms: None Reported Past Surgical History: Hysterectomy, Orthopedic Surgery Additional Past Surgical History / Comment(s): meningeal brain tumor crainiotomy 2007 right groin hernia, right shoulder spur x 2 Past Psychological History: Anxiety Smoking Status: Current every day smoker Past Alcohol Use History: Occasional Past Drug Use History: Marijuana General Exam Limitations: no limitations General appearance: alert, in no apparent distress Head exam: Present: atraumatic, normocephalic, normal inspection Eye exam: Present: normal appearance, PERRL, EOMI. Absent: scleral icterus, conjunctival injection, periorbital swelling ENT exam: Present: normal exam, mucous membranes moist Neck exam: Present: normal inspection, full ROM Respiratory exam: Absent: respiratory distress, accessory muscle use Cardiovascular Exam: Present: regular rate GI/Abdominal exam: Present: soft. Absent: distended Rectal exam: Present: deferred Extremities exam: Present: normal inspection. Absent: pedal edema, joint swelling Back exam: Present: normal inspection, full ROM (slightly limited by pain), tenderness (right lower) Neurological exam: Present: alert, oriented X3, CN II-XII intact Psychiatric exam: Present: normal affect, normal mood Skin exam: Present: rash (erythemic raised rash with defined border right medial chest wall) Course Vital Signs 07/15/22 07/15/22 13:16 17:03 Temperature 97.9 F Pulse Rate 71 62 Respiratory 20 20 Rate Blood Pressure 136/84 146/81 O2 Sat by Pulse 100 99 Oximetry Medical Decision Making - Medical Decision Making 51-year-old female presenting with right lower back pain with radiculopathy into the right leg. History of back pain without trauma no indication for diagnostic imaging or laboratory studies. Attempted to treat with Aleve and muscle relaxer at home without relief will give morphine along with dose of Solu-Medrol monitor response. Breast or chest wall consistent with yeast infection will treat with topical antifungal upon discharge. Will monitor. Pain persists after Solu-Medrol IM morphine; will give dose of IM Norflex and Dilaudid and monitor response. Pain improved significantly with IM Dilaudid and Norflex will discharge home with ibuprofen and Flexeril to utilize as needed. Encouraged warm and he compresses as needed no greater than 20 minutes intervals. Range of motion as tolerated encouraged. Advised avoidance of heavy lifting and bedrest. She is to follow-up with her primary care provider. Case discussed with Dr. Fregoso. Disposition Clinical Impression: Lumbar radiculopathy, Candidosis of skin Disposition: HOME SELF-CARE Condition: Stable Instructions (If sedation given, give patient instructions): Acute Low Back Pain (ED), Skin Yeast Infection (ED) Additional Instructions: Please utilize ibuprofen and muscle relaxer as needed for pain. Avoid bed rest and heavy lifting. Range of motion as tolerated encouraged. May apply ice or heat packs up to 20 minutes at a time every few hours as needed. Please utilize antifungal cream to rash to right breast until clear. Keep area clean and dry. Avoid itching. May use [id number] anti-itch cream if needed. Please follow-up with your primary care provider. Please return to the Emergency Department if symptoms worsen or any other concerns. Prescriptions: Cyclobenzaprine HCl 10 mg PO TID PRN 7 Days #21 tab PRN Reason: Muscle Spasm Clotrimazole Cream [Lotrimin Cream] 1 applic TOPICAL BID #30 gm Ibuprofen [Motrin] 800 mg PO Q8H PRN 7 Days #21 tab PRN Reason: Pain Is patient prescribed a controlled substance at d/c from ED?: No Referrals: Allan Vasquez MD [Primary Care Provider] - 1-2 days Time of Disposition: 18:22
[2022-07-15] MEDS ORDERED: ORPHENADRINE 30 MG/ML 2 ML VIAL IM STA (16:55)
[2022-07-15] MEDS ORDERED: HYDROmorphone 1 MG/ML 1 ML SYRINGE IM STA (16:55)
[2022-07-15 17:05] VITALS: BP 146/81; PULSE 62
== END 2022-07-15 18:30 | disposition home or self-care (01) ==
LOC: EC 12:42
DX: M54.50 Low back pain, unspecified (principal); M54.16 Radiculopathy, lumbar region; B37.2 Candidiasis of skin and nail; I10 Essential (primary) hypertension; F17.200 Nicotine dependence, unspecified, uncomplicated; F12.90 Cannabis use, unspecified, uncomplicated
CPT/HCPCS: 99283; 96374; 96372 ×2; J2270; J2360; J2930; J1170

== ENCOUNTER 2023-12-29 09:35 | Emergency (ER) | payer MEDICARE ==
[2023-12-29] MEDS: KETOROLAC 15 MG/ML 1 ML VIAL IVP STA ×2 (10:11→11:52)
[2023-12-29] MEDS: SODIUM CHLORIDE 0.9% 1,000 ML IV STA (10:11)
[2023-12-29] MEDS: DEXAMETHASONE SOD PHOSPHATE 10 MG/ML 1 ML VIAL IVP STA (10:12)
[2023-12-29] MEDS: diphenhydrAMINE 50 MG/ML 1 ML VIAL IVP STA (10:13)
[2023-12-29] MEDS: METOCLOPRAMIDE 5 MG/ML 2 ML VIAL IVP STA (10:14)
[2023-12-29 10:34] LABS: Basophils % (A) 1 %; Eosinophils # (A) 0.1 k/uL (0-0.7); Eosinophils % (A) 2 %; HCT 44.1 % (34.0-46.0); HGB 14.5 gm/dL (11.4-16.0); Lymphocytes # (A) 2.2 k/uL (1.0-4.8); Lymphocytes % (A) 28 %; MCH 29.3 pg (25.0-35.0); MCV 88.8 fL (80.0-100.0); Mean Platelet Volume 10.6; Monocytes # (A) 0.3 k/uL (0-1.0); Monocytes % (A) 4 %; Neutrophils % (A) 64 %; Platelet Count 197 k/uL (150-450); RBC 4.97 m/uL (3.80-5.40); RDW 13.6 % (11.5-15.5); WBC 7.8 k/uL (3.8-10.6)
[2023-12-29 10:42] VITALS: RESP 18; TEMP 98
[2023-12-29 10:50] LABS: ALT 40 U/L (4-34); AST 32 U/L (14-36); African American GFR (CKD) >90 (>60 ml/min/1.73 sqM); Albumin 4.2 g/dL (3.5-5.0); Alkaline Phosphatase 97 U/L (38-126); Anion Gap 11 mmol/L; Blood Urea Nitrogen 12 mg/dL (7-17); Calcium 9.4 mg/dL (8.4-10.2); Carbon Dioxide 21 mmol/L (22-30); Chloride 106 mmol/L (98-107); Glucose 176 mg/dL (74-99); Non-African American GFR(CKD) >90 (>60 ml/min/1.73 sqM); Sodium 138 mmol/L (137-145); Total Bilirubin 0.7 mg/dL (0.2-1.3); Total Protein 6.8 g/dL (6.3-8.2)
--- NOTE | 2023-12-29 10:56 | CT ---
EXAMINATION TYPE: CT brain wo con DATE OF EXAM: 12/29/2023 COMPARISON: 01/13/2020 HISTORY: 53-year-old female headache with history of meningeal brain tumor, craniotomy TECHNIQUE: Examination was done in axial plane without intravenous contrast. Coronal and sagittal r econstructions performed. CT DLP: 1048.4 mGycm Automated exposure control for dose reduction was used. FINDINGS: Patient status post right frontal craniotomy. Redemonstration of the underlying partially calcified e xtra-axial mass along the superior falx measuring 3.7 x 1.8 cm (versus 3.3 x 1.7 cm on 01/13/2020). Otherwise, no evidence for acute intracranial hemorrhage, acute ischemic change, mass effect, midline shift, or extra-axial fluid collection. No hydrocephalus. No effacement of cerebral sulci or basal s ubarachnoid cisterns. Nev[place]-white matter differentiation is maintained. Smaller caliber to the right lateral ventricle likely anatomic variation and unchanged. Paranasal sinuses and mastoid air cells well pneumatized. Trace mucosal thickening right maxillary si nus. Orbits and globes are intact. IMPRESSION: 1. Previous right frontal craniotomy. The underlying partially calcified extra-axial mass/meningioma along the superior falx is stable to very minimally larger compared to 2020 (3.7 cm versus 3.3 cm, pr eviously). 2. No acute intracranial abnormality seen.
--- NOTE | 2023-12-29 11:49 | ED ---
Headache HPI - General Chief Complaint: Headache Stated Complaint: Migraine/pressure/vision issues Time Seen by Provider: 12/29/23 09:50 Source: patient, RN notes reviewed Mode of arrival: ambulatory Limitations: no limitations - History of Present Illness Initial Comments: This is a 53-year-old female who presents to the emergency department for a headache. Patient states that she has had a headache for the last 6 days. She had a brain tumor partially removed in 2006 at [place], and states that they were not able to remove it completely, and as a result she has continued to have migraines. She does have Ubrelvy that she uses if needed for migraines. However states that this has not been effective for the last 6 days. She has associated nausea and visual changes. She would not describe this as the worst headache of her life. MD Complaint: headache - Related Data Home Medications Medication Instructions Recorded Confirmed Omeprazole 40 mg PO AC-BRKFST 03/24/15 12/29/23 lisinopriL [Lisinopril] 20 mg PO DAILY 03/24/15 12/29/23 ALPRAZolam [Xanax] 0.5 mg PO QID PRN 01/13/20 12/29/23 Naproxen Sodium 550 mg PO BID 12/29/23 12/29/23 amLODIPine 10 mg PO DAILY 12/29/23 12/29/23 Previous Rx's Medication Instructions Recorded Ondansetron Odt [Zofran Odt] 4 mg PO Q8HR PRN #15 tab 12/29/23 Rimegepant Sulfate [Nurtec Odt] 75 mg PO DAILY PRN #8 tab 12/29/23 Allergies Allergy/AdvReac Type Severity Reaction Status Date / Time No Known Allergies Allergy Verified 12/29/23 12:38 Review of Systems ROS Statement: Those systems with pertinent positive or pertinent negative responses have been documented in the HPI. ROS Other: All systems not noted in ROS Statement are negative. Past Medical History Past Medical History: Hypertension Additional Past Medical History / Comment(s): migranes, kidney stones, brain tumor History of Any Multi-Drug Resistant Organisms: None Reported Past Surgical History: Hysterectomy, Orthopedic Surgery Additional Past Surgical History / Comment(s): meningeal brain tumor crainiotomy 2007 right groin hernia, right shoulder spur x 2 Past Psychological History: Anxiety Smoking Status: Current every day smoker Past Alcohol Use History: Occasional Past Drug Use History: Marijuana General Exam Limitations: no limitations General appearance: alert, in no apparent distress Head exam: Present: atraumatic, normocephalic, normal inspection Eye exam: Present: normal appearance, PERRL, EOMI. Absent: scleral icterus, conjunctival injection, periorbital swelling Respiratory exam: Present: normal lung sounds bilaterally. Absent: respiratory distress, wheezes, rales, rhonchi, stridor Cardiovascular Exam: Present: regular rate, normal rhythm, normal heart sounds. Absent: systolic murmur, diastolic murmur, rubs, gallop, clicks Neurological exam: Present: alert, oriented X3, CN II-XII intact Psychiatric exam: Present: normal affect, normal mood Skin exam: Present: warm, dry, intact, normal color. Absent: rash Course Vital Signs 12/29/23 12/29/23 12/29/23 09:39 11:50 13:13 Temperature 98 F Pulse Rate 71 67 67 Respiratory 18 18 18 Rate Blood Pressure 174/99 158/79 152/84 O2 Sat by Pulse 98 95 97 Oximetry Medical Decision Making - Medical Decision Making This is a 53 year old female who presents to the emergency department for a headache. Was pt. sent in by a medical professional or institution? @ -No Did you speak to anyone other than the patient for history? @ -No Did you review nursing and triage notes? @ -Yes, and I agree, it is accurate with regards to the patient's symptoms. Were old charts reviewed? @ -No Differential Diagnosis? @ -Differential Headache: Migraine, tension, cluster, carbon monoxide, central venous thrombosis, pension karma temporal arteritis, acute closure glaucoma, intercranial hemorrhage, mastoiditis, sinusitis, head injury, this is not meant to be an all-inclusive list. EKG interpreted by me (3pts min.)? @ -Not obtained X-rays interpreted by me (1pt min.)? @ -Not obtained CT interpreted by me (1pt min.)? @ -CT scan of the brain obtained. My interpretation identifies no evidence of an acute intracranial hemorrhage. U/S interpreted by me (1pt. min.)? @ -Not obtained What testing was considered but not performed? (CT, X-rays, U/S, labs)? Why? @ -None What meds were considered but not given? Why? @ -None Did you discuss the management of the patient with other professionals? @ -No Did you reconcile home meds? @ -No Was smoking cessation discussed for >3mins.? @ -I discussed smoking cessation for greater than 3 minutes. The risk of smoking were discussed with the patient including but not limited to risks of cancer, stroke, coronary artery disease and COPD. Also discussed with patient were multiple methods of quitting smoking. Lastly we discussed the financial c ost of smoking. Was critical care preformed (if so, how long)? @ -No Were there social determinants of health that impacted care today? How? (Homelessness, low income, unemployed, alcoholism, drug addiction, transportation, low edu. Level, literacy, decrease access to med. care, [facility], rehab)? @ -No Was there de-escalation of care discussed even if they declined? (Discuss DNR or withdrawal of care, Hospice)? @ -No What co-morbidities impacted this encounter? (DM, HTN, Smoking, COPD, CAD, Cancer, CVA, Hep., AIDS, mental health diagnosis, sleep apnea, morbid obesity)? @ -Migraines, smoking, meningioma Was patient admitted / discharged? @ -Discharged. Lab work unremarkable. COVID, influenza, and RSV testing were negative. Given the history of meningioma, CT scan of the brain was obtained. This demonstrates that the meningioma is stable to very minimally larger compared to 2020. It currently measures 3.7 cm and in 2020 measured 3.3 cm. Findings reviewed with the patient. Symptoms were well-controlled in the emergency department. States that she did previously have a sample of [facility] ODT for migraines, which she felt was effective. She was subsequently given a prescription for this to try in the event the headache returns. Prescription for Zofran provided as well for any additional nausea. Advised she follow-up with her brain surgeon regarding the enlarging meningioma. Patient otherwise discharged home in stable condition. Undiagnosed new problem with uncertain prognosis? @ -None Drug Therapy requiring intensive monitoring for toxicity (Heparin, Nitro, Insulin, Cardizem)? @ -None Were any procedures done? @ -None Diagnosis/symptom? @ -Migraine Acute, or Chronic, or Acute on Chronic? @ -Acute Uncomplicated (without systemic symptoms) or Complicated (systemic symptoms)? @ -Uncomplicated Side effects of treatment? @ -None Exacerbation, Progression, or Severe Exacerbation] @ -Not applicable Poses a threat to life or bodily function? @ -No Return precautions reviewed in depth, the patient is instructed to return to the emergency department with any new, worsening, or concerning symptoms. Patient v erbalized understanding. This case was discussed in detail with the attending ED physician, Dr. Chary enriquez. Presentation, findings, and treatment plan discussed in detail as well. - Lab Data Result diagrams: 12/29/23 10:17 12/29/23 10:17 Lab Results 12/29/23 12/29/23 12/29/23 Range/Units 10:17 10:17 10:17 WBC 7.8 (3.8-10.6) k/uL RBC 4.97 (3.80-5.40) m/uL Hgb 14.5 (11.4-16.0) gm/dL Hct 44.1 (34.0-46.0) % MCV 88.8 (80.0-100.0) fL MCH 29.3 (25.0-35.0) pg MCHC 33.0 (31.0-37.0) g/dL RDW 13.6 (11.5-15.5) % Plt Count 197 (150-450) k/uL MPV 10.6 Neutrophils % 64 % Lymphocytes % 28 % Monocytes % 4 % Eosinophils % 2 % Basophils % 1 % Neutrophils # 5.0 (1.3-7.7) k/uL Lymphocytes # 2.2 (1.0-4.8) k/uL Monocytes # 0.3 (0-1.0) k/uL Eosinophils # 0.1 (0-0.7) k/uL Basophils # 0.0 (0-0.2) k/uL Sodium 138 (137-145) mmol/L Potassium 4.0 (3.5-5.1) mmol/L Chloride 106 (98-107) mmol/L Carbon Dioxide 21 L (22-30) mmol/L Anion Gap 11 mmol/L BUN 12 (7-17) mg/dL Creatinine 0.66 (0.52-1.04) mg/dL Est GFR (CKD-EPI)AfAm >90 (>60 ml/min/1.73 sqM) Est GFR (CKD-EPI)NonAf >90 (>60 ml/min/1.73 sqM) Glucose 176 H (74-99) mg/dL Calcium 9.4 (8.4-10.2) mg/dL Total Bilirubin 0.7 (0.2-1.3) mg/dL AST 32 (14-36) U/L ALT 40 H (4-34) U/L Alkaline Phosphatase 97 (38-126) U/L Total Protein 6.8 (6.3-8.2) g/dL Albumin 4.2 (3.5-5.0) g/dL Influenza Type A (PCR) Not Detected (Not Detectd) Influenza Type B (PCR) Not Detected (Not Detectd) RSV (PCR) Not Detected (Not Detectd) SARS-CoV-2 (PCR) Not Detected (Not Detectd) - Radiology Data Radiology results: report reviewed, image reviewed Disposition Clinical Impression: Migraine headache, Nicotine dependence Disposition: HOME SELF-CARE Instructions (If sedation given, give patient instructions): Migraine Headache (ED) Additional Instructions: Return to the emergency department with any new, worsening, or concerning symptoms. You can take the Nurtec ODT daily if needed for migraines. You can take the Zofran up to every 8 hours as needed for nausea and vomiting. Follow up with your primary care provider in 1-2 days. Prescriptions: Rimegepant Sulfate [Nurtec Odt] 75 mg PO DAILY PRN #8 tab PRN Reason: Migraine Headache Ondansetron Odt [Zofran Odt] 4 mg PO Q8HR PRN #15 tab PRN Reason: Nausea And Vomiting Is patient prescribed a controlled substance at d/c from ED?: No Referrals: Allan Vasquez MD [Primary Care Provider] - 1-2 days Time of Disposition: 13:04
[2023-12-29] MEDS: MORPHINE SULFATE 2 MG/ML SYRINGE IVP STA (11:51)
[2023-12-29 12:12] VITALS: PULSE 67
[2023-12-29] MEDS: ACET/COD 300 MG/30 MG STARTER PACK 6 TAB BTL PO STA (13:10)
[2023-12-29] MEDS: ONDANSETRON 4 MG ODT STARTER PACK 2 TAB BTL PO STA (13:11)
[2023-12-29 13:37] VITALS: BP 152/84
== END 2023-12-29 13:16 | disposition home or self-care (01) ==
LOC: EC 09:35
DX: G43.909 Migraine, unspecified, not intractable, without status migrainosus (principal); F17.210 Nicotine dependence, cigarettes, uncomplicated; Z11.52 Encounter for screening for COVID-19; Z86.011 Personal history of benign neoplasm of the brain
CPT/HCPCS: 36415; 80053; 85025; 87636; 70450; 99406; 99284; 96374; 96375 ×5; 96376; 96361; J1200; J1100; J2765; J3360; J2270; J1885; S0119

== ENCOUNTER → 2024-01-17 | Outpatient (CLI) | payer MEDICARE ==
--- NOTE | 2024-01-19 09:29 | MR ---
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 COMPARISON: CT 12/29/2023. MRA 02/15/2010 TECHNIQUE: Multi planar, multi sequence imaging was performed through the orbits/face. Post contrast imaging was performed after the administration of 11 cc of Gadavist intravenously. FINDINGS, ORBITS: The globes appear symmetrical. Orbital contents are intact. Signal intensity of th e optic nerves are within normal limits. The intraorbital fat appears preserved. Both lacrimal glan ds are unremarkable. The extraocular muscles appear symmetric. After administration of contrast, no a bnormal enhancement is seen. FINDINGS, BRAIN: Craniotomy possibly representing meningioma. Changes in the right posterior parietal region with susceptibility artifact along the skull. Encephalomalacia right posterior frontal/pariet al region with white matter change. There is thickening of the dura in this region with enhancing con fluent mass measuring 30 x 19 x 40 mm in totality along the falx. The ramos-white junctions, ventricul ar system, and cisterns do appear unremarkable. Diffusion-weighted imaging shows no evidence of rest ricted diffusion. Scattered foci of high T2 signal intensity are seen within the periventricular whi te matter. Cavernous sinus is within normal limits. After administration of contrast, no abnormal e nhancement is seen within the brain. The bone marrow signal is within normal limits. Paranasal sinuses and mastoid air cells: No significant paranasal sinus disease. Visualized orbits: Orbital contents are intact. IMPRESSION: 1. Enhancing extra-axial confluent mass along the dura most compatible with meningioma in the site o f prior craniotomy. There is some adjacent encephalomalacia/postsurgical change to the brain. 2. No evidence of intraorbital mass or significant abnormality. 3. No evidence of intra-axial mass nor acute/subacute CVA accident. 4 . Nonspecific white matter changes are identified likely small vessel ischemic disease.
== END | disposition home or self-care (01) ==
LOC: RADMRIMAIN 20:15
PROVIDERS: ATTEND Ophthalmology
DX: G52.7 Disorders of multiple cranial nerves (principal); G93.89 Other specified disorders of brain; R90.82 White matter disease, unspecified
CPT/HCPCS: 70543; 70553; A9585